=== PATIENT | male | born 1995 | race Caucasian/White ===

== ENCOUNTER 2017-01-04 00:54 | Emergency (ER) | payer BC ==
[2017-01-04] MEDS ORDERED: PENICILLIN G BENZATHINE 600,000 UNIT/ML SYRINGE IM ONE ×2 (01:04→01:07)
[2017-01-04] MEDS ORDERED: DEXAMETHASONE 10 MG/ML VIAL PO STA (01:07)
[2017-01-04] MEDS ORDERED: IBUPROFEN 600 MG TABLET PO STA (01:07)
[2017-01-04] MEDS ORDERED: PENICILLIN G BENZATHINE 600,000 UNIT/ML SYRINGE IM STA (01:07)
[2017-01-04] MEDS ORDERED: IBUPROFEN 600 MG TABLET PO ONE (01:16)
[2017-01-04] MEDS ORDERED: DEXAMETHASONE 10 MG/ML VIAL ONE (01:16)
== END 2017-01-04 01:48 | disposition home or self-care (01) ==
DX: J02.0 Streptococcal pharyngitis (principal)
CPT/HCPCS: 87430; 99283; A9270